=== PATIENT | female | born 1995 | race African-American/Black ===

== ENCOUNTER 2017-04-29 04:02 | Emergency (ER) | payer OTHER ==
[~2017-04-29] VITALS: Ht 165.1 cm; Wt 60.0 kg
[2017-04-29 09:20] VITALS: BP 123/81
== END 2017-04-29 09:32 | disposition home or self-care (01) ==
LOC: ER 04:02
DX: R51 Headache (principal); M54.2 Cervicalgia; V89.2XXA Person injured in unspecified motor-vehicle accident, traffic, initial encounter; Y93.89 Activity, other specified; Y92.411 Interstate highway as the place of occurrence of the external cause; Y99.8 Other external cause status
CPT/HCPCS: 81025; 99283; Z7610